=== PATIENT | male | born 1945 | race Caucasian/White ===

== ENCOUNTER → 2017-11-07 | Outpatient (CLI) | payer MEDICARE, OTHER ==
[~2017-11-07] VITALS: Ht 185.4 cm; Wt 108.9 kg
[~2017-11-07] MED LIST: ADENOSINE 90 MG/30 ML INJ IV ONE; ADENOSINE 91 MG in GIVE UN-DILUTED 0 ML IV ONE; ASPI81CH43; CITA-30; FURO40TA; INSLANTI; INSLISPI; LISI-711; MET25T; METF-370; SPIR25TA88; [UNRECOGNIZED DRUG - OTHER]
== END | disposition home or self-care (01) ==
LOC: Rad HDHVI 08:58
PROVIDERS: ATTEND Internal Medicine Cardiovascular Disease
DX: I34.0 Nonrheumatic mitral (valve) insufficiency (principal); E11.40 Type 2 diabetes mellitus with diabetic neuropathy, unspecified; E11.65 Type 2 diabetes mellitus with hyperglycemia; I95.9 Hypotension, unspecified; I11.0 Hypertensive heart disease with heart failure; I50.9 Heart failure, unspecified; Z79.4 Long term (current) use of insulin
CPT/HCPCS: 78452; 93005; 93306; 96374; 96375; A9500; J0153

== ENCOUNTER → 2017-12-04 | Outpatient (CLI) | payer MEDICARE ==
[~2017-12-04] MED LIST changes: -ADENOSINE 90 MG/30 ML INJ IV ONE; -ADENOSINE 91 MG in GIVE UN-DILUTED 0 ML IV ONE; +CITA-77 PO; +GLIP-116 PO; +INSLANTI SC; +INSLISPI SC; +LIRA18IN2 SUBCUT; +METF-370 PO; +METO25TA62 PO; +SPIR25TA89 PO; +TRAZ150T79 PO; +VALS80TA OR
[2017-12-04 10:15] VITALS: BP 150/94
[2017-12-04 11:24] VITALS: BP 140/87
[2017-12-04 12:21] LABS: INR 1.02 (0.9-1.15); Partial Thromboplastin Time 26.2 sec (22.64-33.71); Prothrombin Time 11.1 sec (9.37-12.3)
[2017-12-04 12:23] LABS: Basophils # (auto) 0 uL; Basophils % (auto) 0.1 % (0.0-2.0); Eosinophils # (auto) 0.1 uL; Eosinophils % (auto) 1.9 % (0.0-7.0); Hematocrit 37.1 % (41.0-53.0); Hemoglobin 12.5 g/dL (13.5-17.5); Lymphocytes # (auto) 0.8 uL; Lymphocytes % (auto) 17.9 % (10.0-50.0); Mean Corpuscular Hemoglobin 32.5 pg (28.0-32.0); Mean Corpuscular Hgb Conc. 33.8 g/dL (32.0-36.0); Mean Corpuscular Volume 96.2 fL (80.0-100.0); Monocytes # (auto) 0.5 uL; Monocytes % (auto) 10.9 % (0.0-12.0); Neutrophils # (auto) 3.1 uL; Neutrophils % (auto) 69.2 % (37.0-80.0); Platelet Count (auto) 185 10^3/uL (140-450); Red Blood Cells 3.86 10^6/uL (4.5-5.90); Red Cell Distribution Width 13.5 % (11.8-14.3); White Blood Cell 4.5 10^3/uL (4.4-10.8)
[2017-12-04 12:44] LABS: Albumin 3.2 g/dL (3.4-5.0); BUN/Creatinine Ratio 14.2; Bilirubin, Total 0.4 mg/dL (0.2-1.0); Calcium 9.7 mg/dL (8.5-10.1); Potassium 3.7 mmol/L (3.5-5.1); Total Protein 7.1 g/dL (6.4-8.2)
== END | disposition home or self-care (01) ==
LOC: Rad HDHVI 09:49
PROVIDERS: ATTEND Internal Medicine Cardiovascular Disease
DX: Z01.818 Encounter for other preprocedural examination (principal); I51.7 Cardiomegaly; I70.0 Atherosclerosis of aorta; E03.9 Hypothyroidism, unspecified; I10 Essential (primary) hypertension; E11.9 Type 2 diabetes mellitus without complications; Z79.4 Long term (current) use of insulin; Z95.810 Presence of automatic (implantable) cardiac defibrillator
CPT/HCPCS: 36415; 71046; 80053; 85025; 85610; 85730; 93005; G0463

== ENCOUNTER 2017-12-06 09:32 | Inpatient (IN) | payer MEDICARE ==
[~2017-12-06] VITALS: Ht 185.4 cm; Wt 113.2 kg
[~2017-12-06 09:32] MED LIST changes: -ASPI81CH43; -CITA-30; -FURO40TA; -INSLANTI; -INSLISPI; -LISI-711; -MET25T; -METF-370; -SPIR25TA88; -[UNRECOGNIZED DRUG - OTHER]
[2017-12-06] MEDS ORDERED: LIDOCAINE 2%HCL (LOCAL ANESTH.) INJ 20ML MDV ONE (10:28)
[2017-12-06] MEDS ORDERED: ceFAZolin 1GM/100ML 50 ML IV ONE (11:27)
[2017-12-06] MEDS ORDERED: VANCOMYCIN 1GM/250ML 250 ML IV ONE (12:18)
[2017-12-06] MEDS ORDERED: MIDAZOLAM HCL 1MG/1ML-2 ML VIAL ONE (12:18)
[2017-12-06] MEDS ORDERED: fentaNYL CITRATE 100 MCG/2 ML VL ONE (12:18)
[2017-12-06] MEDS ORDERED: VANCOMYCIN HCL 1000 MG VL ONE (12:18)
[2017-12-06] MEDS ORDERED: HYDROcodone-ACET 5/325MG TAB PO PRN (13:45)
[2017-12-06] MEDS ORDERED: ACETAMINOPHEN 325 MG TAB PO PRN (13:45)
[2017-12-06] MEDS ORDERED: MORPHINE SULFATE 4 MG/ML SYR/VIAL IV PRN (13:45)
[2017-12-06] MEDS ORDERED: NITROGLYCERIN 0.4 MG SL TAB SL PRN (13:45)
[2017-12-06] MEDS ORDERED: DEXTROSE (50%) 50ML SYRG IV PRN (13:45)
[2017-12-06 15:00] VITALS: BP 137/88
[2017-12-06 17:00] VITALS: BP 120/75
[2017-12-06] MEDS: InsuLIN REG 1unit/0.01ml Soln (100units/ml) SC SCH (19:00)
[2017-12-06] MEDS: ACCU-CHEK COMFORT CURVE STRIP VI SCH ×2 (19:00→21:31)
[2017-12-06] MEDS: INSULIN LANTUS (GLARGINE) 1 /0.01ml (100units/ml) SC SCH (19:00)
[2017-12-06] MEDS ORDERED: InsuLIN REG 1unit/0.01ml Soln (100units/ml) SC SCH (22:00)
[2017-12-06] MEDS ORDERED: traZODone HCL 50 MG TAB PO SCH (22:00)
[2017-12-06 22:30] VITALS: BP 146/90
[2017-12-06] MEDS ORDERED: TEMAZEPAM 15 MG CAP PO PRN (23:30)
[2017-12-07] MEDS: VANCOMYCIN 1GM/250ML 250 ML IV SCH ×2 (03:18→14:39)
[2017-12-07 04:37] VITALS: BP 133/85
[2017-12-07] MEDS: InsuLIN REG 1unit/0.01ml Soln (100units/ml) SC SCH ×3 (06:45→17:00)
[2017-12-07] MEDS: ACCU-CHEK COMFORT CURVE STRIP VI SCH ×3 (06:46→18:25)
[2017-12-07 07:39] VITALS: BP 134/95
[2017-12-07] MEDS ORDERED: glipiZIDE 5 MG TAB PO SCH (08:00)
[2017-12-07] MEDS ORDERED: VALSARTAN HYDROCHLOROTHIAZIDE PO SCH (10:00)
[2017-12-07] MEDS ORDERED: METOPROLOL SUCCINATE XL 50 MG TAB PO SCH (10:00)
[2017-12-07] MEDS ORDERED: metFORMIN HYDROCHLORIDE 500 MG TAB PO SCH (10:00)
[2017-12-07] MEDS ORDERED: SPIRONOLACTONE 25 MG TAB PO SCH (10:00)
[2017-12-07] MEDS ORDERED: CITALOPRAM HYDROBR 20 MG TAB PO SCH (10:00)
[2017-12-07 12:38] VITALS: BP 123/95
[2017-12-07 15:15] VITALS: BP 134/95
[2017-12-07 16:34] VITALS: BP 116/73
[2017-12-07] MEDS: INSULIN LANTUS (GLARGINE) 1 /0.01ml (100units/ml) SC SCH (18:00)
== END 2017-12-07 19:21 | disposition home or self-care (01) | DRG 245 ==
LOC: CATH 09:32 → TELE-EAST 09:33
PROVIDERS: ADMIT Internal Medicine Cardiovascular Disease; ATTEND Internal Medicine Cardiovascular Disease
PROC: 0JPT0PZ Removal of Cardiac Rhythm Related Device from Trunk Subcutaneous Tissue and Fascia, Open Approach (ICD-10-PCS; principal; 2017-12-06)
PROC: 0JH609Z Insertion of Cardiac Resynchronization Defibrillator Pulse Generator into Chest Subcutaneous Tissue and Fascia, Open Approach (ICD-10-PCS; 2017-12-06)
DX: Z45.02 Encounter for adjustment and management of automatic implantable cardiac defibrillator (principal); I50.22 Chronic systolic (congestive) heart failure; I25.5 Ischemic cardiomyopathy; I25.10 Atherosclerotic heart disease of native coronary artery without angina pectoris
CPT/HCPCS: 33264; 36415; 71046; 80053; 82962; 85025; 85610; 85730; 93005; 99152; G0463; J0690; J1815; J2250

== ENCOUNTER 2018-02-21 09:12 | Inpatient (IN) | payer MEDICARE ==
[~2018-02-21] VITALS: Ht 185.4 cm; Wt 110.0 kg
[~2018-02-21 09:12] MED LIST changes: +CARB25TA22 PO; +DOXA4TAB40 PO; +IODIXANOL 320MG/ML 100ML BTL IV ONE; +IVAB1.7T PO; +LIDOCAINE 2%HCL (LOCAL ANESTH.) INJ 10ml MDV ONE; -LIRA18IN2 SUBCUT; -METF-370 PO; +VALS160T53 PO; -VALS80TA OR
[2018-02-21] MEDS ORDERED: ANGIOMAX 250 MG VIAL IV ONE (09:50)
[2018-02-21] MEDS ORDERED: MIDAZOLAM HCL 1MG/1ML-2 ML VIAL ONE (09:51)
[2018-02-21] MEDS ORDERED: SODIUM CHL 0.9% 0 ML ONE (09:51)
[2018-02-21] MEDS ORDERED: fentaNYL CITRATE 100 MCG/2 ML VL ONE (09:51)
[2018-02-21] MEDS ORDERED: IODIXANOL 320MG/ML 100ML BTL IV ONE (10:20)
[2018-02-21] MEDS ORDERED: diphenhdrAMINE HCL 50 MG/1 ML VL ONE (10:24)
[2018-02-21] MEDS: ACCU-CHEK COMFORT CURVE STRIP VI SCH ×3 (11:30→22:11)
[2018-02-21] MEDS ORDERED: MORPHINE SULF INJ 2 MG/ML SYRINGE 1ML IV PRN ×2 (11:30→12:15)
[2018-02-21] MEDS ORDERED: NITROGLYCERIN 0.4 MG SL TAB SL PRN ×2 (11:30→12:15)
[2018-02-21] MEDS: InsuLIN REG 1unit/0.01ml Soln (100units/ml) SC SCH ×3 (11:30→22:09)
[2018-02-21] MEDS ORDERED: DEXTROSE (50%) 50ML SYRG IV PRN (11:30)
[2018-02-21] MEDS ORDERED: ONDANSETRON HCL 4 MG/2 ML VIAL IV PRN (12:15)
[2018-02-21] MEDS ORDERED: ACETAMINOPHEN 500 MG TAB PO PRN (12:15)
[2018-02-21] MEDS ORDERED: HYDROcodone-ACET 5/325MG TAB PO PRN (12:15)
[2018-02-21] MEDS: FUROSEMIDE INJECTION 250 MG in SODIUM CHL 0.9% 225 ML IV SCH (12:41)
[2018-02-21] MEDS ORDERED: METOPROLOL SUCCINATE XL 50 MG TAB PO ONE (15:15)
[2018-02-21] MEDS: SODIUM CHLOR 0.9% PF (SALINE LOCK) 10ML VIAL/SYR IV SCH ×2 (15:56→22:09)
[2018-02-21 16:00] VITALS: BP 126/95
[2018-02-21] MEDS: MILRINONE 20MG/100ML 100 ML IV SCH ×4 (16:20→23:19)
[2018-02-21 17:00] VITALS: BP 119/98
[2018-02-21] MEDS: METOPROLOL SUCCINATE XL 50 MG TAB PO SCH (17:50)
[2018-02-21] MEDS: CARBIDOPA W LEVODOPA 25/100mg TABLET PO SCH (17:50)
[2018-02-21 20:00] VITALS: BP 124/74
[2018-02-21 20:11] LABS: BUN/Creatinine Ratio 23.5; Calcium 8.8 mg/dL (8.5-10.1); Potassium 4.8 mmol/L (3.5-5.1)
[2018-02-21 22:00] VITALS: BP 124/74
[2018-02-21] MEDS ORDERED: METOPROLOL TARTRATE 50 MG TAB PO SCH (22:00)
[2018-02-21] MEDS: traZODone HCL 50 MG TAB PO SCH (22:09)
[2018-02-21] MEDS: INSULIN LANTUS (GLARGINE) 1 /0.01ml (100units/ml) SC SCH (22:10)
[2018-02-22 05:00] VITALS: BP_SYST 129; BP_SYST 135; BP_DIAS 68; BP_DIAS 81
[2018-02-22] MEDS: MILRINONE 20MG/100ML 100 ML IV SCH ×3 (05:06→22:06)
[2018-02-22] MEDS: SODIUM CHLOR 0.9% PF (SALINE LOCK) 10ML VIAL/SYR IV SCH ×3 (06:21→22:06)
[2018-02-22] MEDS: INSULIN LANTUS (GLARGINE) 1 /0.01ml (100units/ml) SC SCH ×2 (06:47→22:20)
[2018-02-22] MEDS: ACCU-CHEK COMFORT CURVE STRIP VI SCH ×4 (06:47→22:21)
[2018-02-22] MEDS: InsuLIN REG 1unit/0.01ml Soln (100units/ml) SC SCH ×4 (06:47→22:20)
[2018-02-22 07:15] LABS: Basophils # (auto) 0 uL; Basophils % (auto) 0.1 % (0.0-2.0); Eosinophils # (auto) 0.1 uL; Eosinophils % (auto) 1.9 % (0.0-7.0); Hematocrit 36.4 % (41.0-53.0); Lymphocytes # (auto) 0.7 uL; Lymphocytes % (auto) 12.1 % (10.0-50.0); Mean Corpuscular Hemoglobin 33.1 pg (28.0-32.0); Mean Corpuscular Hgb Conc. 32.8 g/dL (32.0-36.0); Mean Corpuscular Volume 100.9 fL (80.0-100.0); Monocytes # (auto) 0.6 uL; Neutrophils # (auto) 4.3 uL; Neutrophils % (auto) 74.9 % (37.0-80.0); Nucleated Red Blood Cells % 0.2 %; Platelet Count (auto) 172 10^3/uL (140-450); Red Blood Cells 3.61 10^6/uL (4.5-5.90); Red Cell Distribution Width 17.6 % (11.8-14.3); White Blood Cell 5.7 10^3/uL (4.4-10.8)
[2018-02-22 07:32] LABS: Potassium 3.8 mmol/L (3.5-5.1)
[2018-02-22 07:41] LABS: BUN/Creatinine Ratio 24.7; Calcium 8.9 mg/dL (8.5-10.1)
[2018-02-22 09:00] VITALS: BP 118/93
[2018-02-22] MEDS: CITALOPRAM HYDROBR 20 MG TAB PO SCH (09:37)
[2018-02-22] MEDS: CARBIDOPA W LEVODOPA 25/100mg TABLET PO SCH (09:37)
[2018-02-22] MEDS: DOXAZOSIN MESYL 2 MG TAB PO SCH (09:37)
[2018-02-22] MEDS: DIGOXIN 0.125 MG TAB PO SCH (09:39)
[2018-02-22] MEDS: METOPROLOL SUCCINATE XL 50 MG TAB PO SCH (09:39)
[2018-02-22] MEDS: glipiZIDE 5 MG TAB PO SCH (09:40)
[2018-02-22] MEDS: [UNRECOGNIZED DRUG - OTHER] PO SCH (10:00)
[2018-02-22] MEDS: VALSARTAN HYDROCHLOROTHIAZIDE PO SCH (11:34)
[2018-02-22 13:00] VITALS: BP 115/73
[2018-02-22] MEDS: FUROSEMIDE INJECTION 250 MG in SODIUM CHL 0.9% 225 ML IV SCH (13:21)
[2018-02-22 17:00] VITALS: BP 106/67
[2018-02-22 20:00] VITALS: BP 109/65
[2018-02-22 22:00] VITALS: BP 109/65
[2018-02-22] MEDS: traZODone HCL 50 MG TAB PO SCH (22:06)
[2018-02-22] MEDS: TEMAZEPAM 15 MG CAP PO PRN (22:07)
[2018-02-23 04:57] VITALS: BP 113/75
[2018-02-23] MEDS: MILRINONE 20MG/100ML 100 ML IV SCH ×3 (04:58→17:36)
[2018-02-23] MEDS: SODIUM CHLOR 0.9% PF (SALINE LOCK) 10ML VIAL/SYR IV SCH ×3 (06:16→21:50)
[2018-02-23] MEDS: INSULIN LANTUS (GLARGINE) 1 /0.01ml (100units/ml) SC SCH ×2 (06:32→21:50)
[2018-02-23] MEDS: InsuLIN REG 1unit/0.01ml Soln (100units/ml) SC SCH ×4 (06:32→21:50)
[2018-02-23] MEDS: ACCU-CHEK COMFORT CURVE STRIP VI SCH ×4 (06:36→21:52)
[2018-02-23 08:00] VITALS: BP 136/71
[2018-02-23 09:48] VITALS: BP 136/71
[2018-02-23] MEDS: CITALOPRAM HYDROBR 20 MG TAB PO SCH (09:51)
[2018-02-23] MEDS: VALSARTAN HYDROCHLOROTHIAZIDE PO SCH (09:51)
[2018-02-23] MEDS: METOPROLOL SUCCINATE XL 50 MG TAB PO SCH (09:52)
[2018-02-23] MEDS: DIGOXIN 0.125 MG TAB PO SCH (09:52)
[2018-02-23] MEDS: DOXAZOSIN MESYL 2 MG TAB PO SCH (09:52)
[2018-02-23] MEDS: CARBIDOPA W LEVODOPA 25/100mg TABLET PO SCH (09:54)
[2018-02-23] MEDS: [UNRECOGNIZED DRUG - OTHER] PO SCH (10:00)
[2018-02-23] MEDS: glipiZIDE 5 MG TAB PO SCH (10:38)
[2018-02-23 13:00] VITALS: BP 110/83
[2018-02-23] MEDS: FUROSEMIDE INJECTION 250 MG in SODIUM CHL 0.9% 225 ML IV SCH (13:15)
[2018-02-23 16:44] VITALS: BP 88/56
[2018-02-23] MEDS: TEMAZEPAM 15 MG CAP PO PRN (21:42)
[2018-02-23] MEDS: traZODone HCL 50 MG TAB PO SCH (21:42)
[2018-02-23 21:49] VITALS: BP 101/57
[2018-02-24 04:44] VITALS: BP 98/63
[2018-02-24] MEDS: ACCU-CHEK COMFORT CURVE STRIP VI SCH ×4 (06:34→23:03)
[2018-02-24] MEDS: InsuLIN REG 1unit/0.01ml Soln (100units/ml) SC SCH ×4 (06:34→23:02)
[2018-02-24] MEDS: SODIUM CHLOR 0.9% PF (SALINE LOCK) 10ML VIAL/SYR IV SCH ×3 (06:35→22:00)
[2018-02-24] MEDS: INSULIN LANTUS (GLARGINE) 1 /0.01ml (100units/ml) SC SCH ×2 (06:35→23:03)
[2018-02-24 08:00] VITALS: BP 97/64
[2018-02-24] MEDS: METOPROLOL SUCCINATE XL 50 MG TAB PO SCH (10:00)
[2018-02-24] MEDS: [UNRECOGNIZED DRUG - OTHER] PO SCH (10:00)
[2018-02-24] MEDS: VALSARTAN HYDROCHLOROTHIAZIDE PO SCH (10:00)
[2018-02-24] MEDS: DOXAZOSIN MESYL 2 MG TAB PO SCH (10:00)
[2018-02-24] MEDS: CITALOPRAM HYDROBR 20 MG TAB PO SCH (10:15)
[2018-02-24] MEDS: CARBIDOPA W LEVODOPA 25/100mg TABLET PO SCH (10:15)
[2018-02-24] MEDS: DIGOXIN 0.125 MG TAB PO SCH (10:15)
[2018-02-24] MEDS: glipiZIDE 5 MG TAB PO SCH (10:16)
[2018-02-24] MEDS: MILRINONE 20MG/100ML 100 ML IV SCH (10:17)
[2018-02-24 10:26] LABS: Albumin 2.8 g/dL (3.4-5.0); BUN/Creatinine Ratio 21.8; Bilirubin, Total 0.9 mg/dL (0.2-1.0); Calcium 8.7 mg/dL (8.5-10.1); Potassium 3.6 mmol/L (3.5-5.1); Total Protein 5.9 g/dL (6.4-8.2)
[2018-02-24 12:25] VITALS: BP 93/55
[2018-02-24 12:28] VITALS: BP 93/55
[2018-02-24] MEDS: FUROSEMIDE INJECTION 250 MG in SODIUM CHL 0.9% 225 ML IV SCH (13:32)
[2018-02-24 16:47] VITALS: BP 116/68
[2018-02-24 21:43] VITALS: BP 109/69
[2018-02-24] MEDS: traZODone HCL 50 MG TAB PO SCH (22:00)
[2018-02-24] MEDS: TEMAZEPAM 15 MG CAP PO PRN (23:11)
[2018-02-25] MEDS: MILRINONE 20MG/100ML 100 ML IV SCH ×2 (00:49→17:54)
[2018-02-25 04:44] VITALS: BP 93/72
[2018-02-25] MEDS: SODIUM CHLOR 0.9% PF (SALINE LOCK) 10ML VIAL/SYR IV SCH ×3 (06:00→22:51)
[2018-02-25] MEDS: InsuLIN REG 1unit/0.01ml Soln (100units/ml) SC SCH ×4 (06:45→23:32)
[2018-02-25] MEDS: ACCU-CHEK COMFORT CURVE STRIP VI SCH ×4 (06:45→23:33)
[2018-02-25] MEDS: INSULIN LANTUS (GLARGINE) 1 /0.01ml (100units/ml) SC SCH ×2 (06:53→23:33)
[2018-02-25 09:00] VITALS: BP 113/76
[2018-02-25] MEDS: glipiZIDE 5 MG TAB PO SCH (09:30)
[2018-02-25] MEDS: CITALOPRAM HYDROBR 20 MG TAB PO SCH (09:30)
[2018-02-25] MEDS: DIGOXIN 0.125 MG TAB PO SCH (09:30)
[2018-02-25] MEDS: VALSARTAN HYDROCHLOROTHIAZIDE PO SCH (10:00)
[2018-02-25] MEDS: DOXAZOSIN MESYL 2 MG TAB PO SCH (10:00)
[2018-02-25] MEDS: [UNRECOGNIZED DRUG - OTHER] PO SCH (10:00)
[2018-02-25] MEDS: METOPROLOL SUCCINATE XL 50 MG TAB PO SCH (10:00)
[2018-02-25] MEDS: CARBIDOPA W LEVODOPA 25/100mg TABLET PO SCH (10:07)
[2018-02-25 13:00] VITALS: BP 109/67
[2018-02-25 13:20] LABS: BUN/Creatinine Ratio 20.4; Calcium 8.5 mg/dL (8.5-10.1); Potassium 3.7 mmol/L (3.5-5.1)
[2018-02-25] MEDS ORDERED: acetaZOLAMIDE 250 MG TAB PO SCH (17:45)
[2018-02-25 17:53] VITALS: BP 120/73
[2018-02-25] MEDS: FUROSEMIDE INJECTION 250 MG in SODIUM CHL 0.9% 225 ML IV SCH (17:54)
[2018-02-25 21:30] VITALS: BP 96/55
[2018-02-25] MEDS: traZODone HCL 50 MG TAB PO SCH (22:51)
[2018-02-26] MEDS: TEMAZEPAM 15 MG CAP PO PRN (00:28)
[2018-02-26] MEDS: MILRINONE 20MG/100ML 100 ML IV SCH (01:26)
[2018-02-26 05:00] VITALS: BP 100/70
[2018-02-26] MEDS: InsuLIN REG 1unit/0.01ml Soln (100units/ml) SC SCH ×4 (06:47→22:47)
[2018-02-26] MEDS: INSULIN LANTUS (GLARGINE) 1 /0.01ml (100units/ml) SC SCH ×2 (06:48→22:47)
[2018-02-26] MEDS: SODIUM CHLOR 0.9% PF (SALINE LOCK) 10ML VIAL/SYR IV SCH ×3 (06:48→22:00)
[2018-02-26] MEDS: ACCU-CHEK COMFORT CURVE STRIP VI SCH ×4 (06:48→22:00)
[2018-02-26 07:42] VITALS: BP 107/70
[2018-02-26] MEDS: VALSARTAN HYDROCHLOROTHIAZIDE PO SCH (10:00)
[2018-02-26] MEDS: CITALOPRAM HYDROBR 20 MG TAB PO SCH (10:00)
[2018-02-26] MEDS: [UNRECOGNIZED DRUG - OTHER] PO SCH (10:00)
[2018-02-26] MEDS: DOXAZOSIN MESYL 2 MG TAB PO SCH (10:00)
[2018-02-26] MEDS: CARBIDOPA W LEVODOPA 25/100mg TABLET PO SCH (10:10)
[2018-02-26] MEDS: DIGOXIN 0.125 MG TAB PO SCH (10:10)
[2018-02-26] MEDS: glipiZIDE 5 MG TAB PO SCH (10:38)
[2018-02-26] MEDS ORDERED: DIGOXIN 0.125 MG TAB PO ONE (11:30)
[2018-02-26] MEDS: METOPROLOL SUCCINATE XL 50 MG TAB PO SCH (11:53)
[2018-02-26 12:14] VITALS: BP 114/54
[2018-02-26 16:39] VITALS: BP 95/65
[2018-02-26 22:00] VITALS: BP 110/75
[2018-02-26] MEDS: traZODone HCL 50 MG TAB PO SCH (22:46)
[2018-02-27 05:00] VITALS: BP 120/68
[2018-02-27] MEDS: SODIUM CHLOR 0.9% PF (SALINE LOCK) 10ML VIAL/SYR IV SCH ×3 (06:50→22:08)
[2018-02-27] MEDS: INSULIN LANTUS (GLARGINE) 1 /0.01ml (100units/ml) SC SCH ×2 (06:50→22:09)
[2018-02-27] MEDS: ACCU-CHEK COMFORT CURVE STRIP VI SCH ×4 (06:50→22:09)
[2018-02-27] MEDS: InsuLIN REG 1unit/0.01ml Soln (100units/ml) SC SCH ×4 (06:50→22:09)
[2018-02-27 07:32] VITALS: BP 120/74
[2018-02-27] MEDS: METOPROLOL SUCCINATE XL 50 MG TAB PO SCH (09:36)
[2018-02-27] MEDS: CITALOPRAM HYDROBR 20 MG TAB PO SCH (09:37)
[2018-02-27] MEDS: DIGOXIN 0.125 MG TAB PO SCH (09:37)
[2018-02-27] MEDS: DOXAZOSIN MESYL 2 MG TAB PO SCH (09:38)
[2018-02-27] MEDS: glipiZIDE 5 MG TAB PO SCH (09:38)
[2018-02-27] MEDS: [UNRECOGNIZED DRUG - OTHER] PO SCH (10:00)
[2018-02-27] MEDS: VALSARTAN HYDROCHLOROTHIAZIDE PO SCH (10:00)
[2018-02-27] MEDS: CARBIDOPA W LEVODOPA 25/100mg TABLET PO SCH (10:00)
[2018-02-27 10:45] LABS: Basophils # (auto) 0 uL; Basophils % (auto) 0.1 % (0.0-2.0); Eosinophils # (auto) 0.1 uL; Eosinophils % (auto) 2.4 % (0.0-7.0); Hematocrit 38.6 % (41.0-53.0); Hemoglobin 12.6 g/dL (13.5-17.5); Lymphocytes # (auto) 0.7 uL; Mean Corpuscular Hemoglobin 32.4 pg (28.0-32.0); Mean Corpuscular Hgb Conc. 32.5 g/dL (32.0-36.0); Mean Corpuscular Volume 99.5 fL (80.0-100.0); Monocytes # (auto) 0.8 uL; Monocytes % (auto) 12.6 % (0.0-12.0); Neutrophils # (auto) 4.4 uL; Neutrophils % (auto) 73.9 % (37.0-80.0); Nucleated Red Blood Cells % 0.1 %; Platelet Count (auto) 169 10^3/uL (140-450); Red Blood Cells 3.88 10^6/uL (4.5-5.90); Red Cell Distribution Width 17.3 % (11.8-14.3)
[2018-02-27 11:07] LABS: Albumin 2.8 g/dL (3.4-5.0); BUN/Creatinine Ratio 21.9; Bilirubin, Total 0.8 mg/dL (0.2-1.0); Calcium 8.9 mg/dL (8.5-10.1); Potassium 3.9 mmol/L (3.5-5.1); Total Protein 6.8 g/dL (6.4-8.2)
[2018-02-27 11:57] VITALS: BP 117/99
[2018-02-27 16:20] VITALS: BP 118/75
[2018-02-27 21:56] VITALS: BP 103/62
[2018-02-27] MEDS: TEMAZEPAM 15 MG CAP PO PRN (22:09)
[2018-02-27] MEDS: traZODone HCL 50 MG TAB PO SCH (22:09)
[2018-02-28 05:52] VITALS: BP 103/76
[2018-02-28] MEDS: SODIUM CHLOR 0.9% PF (SALINE LOCK) 10ML VIAL/SYR IV SCH ×3 (06:13→22:57)
[2018-02-28] MEDS: ACCU-CHEK COMFORT CURVE STRIP VI SCH ×4 (06:14→23:04)
[2018-02-28] MEDS: InsuLIN REG 1unit/0.01ml Soln (100units/ml) SC SCH ×4 (06:14→23:03)
[2018-02-28] MEDS: INSULIN LANTUS (GLARGINE) 1 /0.01ml (100units/ml) SC SCH ×2 (06:14→23:03)
[2018-02-28 08:13] VITALS: BP 98/67
[2018-02-28] MEDS: DOXAZOSIN MESYL 2 MG TAB PO SCH (10:00)
[2018-02-28] MEDS: METOPROLOL SUCCINATE XL 50 MG TAB PO SCH (10:00)
[2018-02-28] MEDS: VALSARTAN HYDROCHLOROTHIAZIDE PO SCH (10:00)
[2018-02-28] MEDS: [UNRECOGNIZED DRUG - OTHER] PO SCH (10:00)
[2018-02-28] MEDS: CARBIDOPA W LEVODOPA 25/100mg TABLET PO SCH (11:32)
[2018-02-28] MEDS: DIGOXIN 0.125 MG TAB PO SCH (11:32)
[2018-02-28] MEDS: CITALOPRAM HYDROBR 20 MG TAB PO SCH (11:33)
[2018-02-28 13:28] VITALS: BP 98/72
[2018-02-28 17:01] VITALS: BP 93/67
[2018-02-28 22:00] VITALS: BP 100/66
[2018-02-28] MEDS: traZODone HCL 50 MG TAB PO SCH (23:02)
[2018-03-01 05:15] VITALS: BP 100/68
[2018-03-01] MEDS: SODIUM CHLOR 0.9% PF (SALINE LOCK) 10ML VIAL/SYR IV SCH (06:00)
[2018-03-01] MEDS: InsuLIN REG 1unit/0.01ml Soln (100units/ml) SC SCH ×2 (07:11→11:58)
[2018-03-01] MEDS: ACCU-CHEK COMFORT CURVE STRIP VI SCH ×2 (07:12→11:58)
[2018-03-01] MEDS: INSULIN LANTUS (GLARGINE) 1 /0.01ml (100units/ml) SC SCH (07:12)
[2018-03-01 08:27] VITALS: BP 102/67
[2018-03-01 09:42] VITALS: BP 102/67
[2018-03-01] MEDS: [UNRECOGNIZED DRUG - OTHER] PO SCH (10:00)
[2018-03-01] MEDS: VALSARTAN HYDROCHLOROTHIAZIDE PO SCH (10:00)
[2018-03-01] MEDS: DOXAZOSIN MESYL 2 MG TAB PO SCH (10:00)
[2018-03-01] MEDS: CITALOPRAM HYDROBR 20 MG TAB PO SCH (10:00)
[2018-03-01] MEDS: METOPROLOL SUCCINATE XL 50 MG TAB PO SCH (10:00)
[2018-03-01] MEDS: CARBIDOPA W LEVODOPA 25/100mg TABLET PO SCH (11:36)
[2018-03-01] MEDS: DIGOXIN 0.125 MG TAB PO SCH (11:36)
[2018-03-01 12:00] VITALS: BP 100/64
== END 2018-03-01 12:54 | disposition home health service (06) | DRG 286 ==
LOC: CATH 09:12 → TELE-EAST 09:13
PROVIDERS: ADMIT Internal Medicine Cardiovascular Disease; ATTEND Internal Medicine Cardiovascular Disease
PROC: 4A023N8 Measurement of Cardiac Sampling and Pressure, Bilateral, Percutaneous Approach (ICD-10-PCS; principal; 2018-02-21)
PROC: B2111ZZ Fluoroscopy of Multiple Coronary Arteries using Low Osmolar Contrast (ICD-10-PCS; 2018-02-21)
PROC: B2151ZZ Fluoroscopy of Left Heart using Low Osmolar Contrast (ICD-10-PCS; 2018-02-21)
DX: I11.0 Hypertensive heart disease with heart failure (principal); J96.90 Respiratory failure, unspecified, unspecified whether with hypoxia or hypercapnia; D68.59 Other primary thrombophilia; E44.0 Moderate protein-calorie malnutrition; I42.0 Dilated cardiomyopathy; E11.40 Type 2 diabetes mellitus with diabetic neuropathy, unspecified; E11.21 Type 2 diabetes mellitus with diabetic nephropathy; I25.5 Ischemic cardiomyopathy; E11.649 Type 2 diabetes mellitus with hypoglycemia without coma; I07.1 Rheumatic tricuspid insufficiency; I50.21 Acute systolic (congestive) heart failure; I27.20 Pulmonary hypertension, unspecified; I45.9 Conduction disorder, unspecified; I48.2 Chronic atrial fibrillation; Z95.810 Presence of automatic (implantable) cardiac defibrillator; Z79.4 Long term (current) use of insulin; Z82.49 Family history of ischemic heart disease and other diseases of the circulatory system
CPT/HCPCS: 36415; 36600; 80048; 80053; 82805; 82962; 83880; 85025; 87081; 93005; 93460; 99152; A6257; J1815; J2001; J2250; Q9967

== ENCOUNTER → 2018-04-08 | Outpatient (CLI) | payer MEDICARE ==
[~2018-04-08] MED LIST changes: -IODIXANOL 320MG/ML 100ML BTL IV ONE; -LIDOCAINE 2%HCL (LOCAL ANESTH.) INJ 10ml MDV ONE; +SPIR25TA8 PO; -SPIR25TA89 PO
== END | disposition home or self-care (01) ==
LOC: Rad HDHVI 09:45
PROVIDERS: ATTEND Internal Medicine Cardiovascular Disease
DX: I08.1 Rheumatic disorders of both mitral and tricuspid valves (principal); I10 Essential (primary) hypertension; E78.00 Pure hypercholesterolemia, unspecified
CPT/HCPCS: 93306

== ENCOUNTER → 2018-10-22 | Outpatient (CLI) | payer MEDICARE | END | disposition home or self-care (01) | LOC: Rad HDHVI 10:43 | PROVIDERS: ATTEND Internal Medicine Cardiovascular Disease | DX: I08.1 Rheumatic disorders of both mitral and tricuspid valves (principal); I25.5 Ischemic cardiomyopathy; I50.23 Acute on chronic systolic (congestive) heart failure | CPT/HCPCS: 93306 ==

== ENCOUNTER → 2018-11-22 | Outpatient (CLI) | payer MEDICARE ==
--- NOTE | 2008-11-22 16:30 | NUR ---
EXISTING HL LFT AC FROM NUC. MED FLUSHED. SITE BENIGN. MVI .9NS STARTED PER MD ORDER AT 200CC/HR. HX: CHF, HTN, DM. PT IS PACED RYTHM AT 60. 102/58.
[~2018-11-22] VITALS: Ht 185.4 cm; Wt 100.2 kg
[~2018-11-22] MED LIST changes: +ADENOSINE 84 MG in GIVE UN-DILUTED 0 ML IV ONE; +ADENOSINE 90 MG/30 ML INJ IV ONE; +MVI in SODIUM CHLORIDE 0.9% 1,010 ML ONE; +MVI in SODIUM CHLORIDE 0.9% 500 ML IVB ONE
[2018-11-22 15:49] LABS: Urine Blood Negative /uL (Negative); Urine Specific Gravity 1.011 (1.001-1.035)
[2018-11-22 15:51] LABS: Basophils # (auto) 0 uL; Basophils % (auto) 0.2 % (0.0-2.0); Eosinophils # (auto) 0.1 uL; Lymphocytes # (auto) 0.7 uL; Monocytes # (auto) 0.5 uL; Neutrophils # (auto) 4.3 uL; White Blood Cell 5.6 10^3/uL (4.4-10.8)
[2018-11-22 15:54] LABS: Eosinophils % (auto) 2.1 % (0.0-7.0); Hematocrit 32.8 % (41.0-53.0); Hemoglobin 11.1 g/dL (13.5-17.5); Lymphocytes % (auto) 12.6 % (10.0-50.0); Mean Corpuscular Hemoglobin 34.8 pg (28.0-32.0); Mean Corpuscular Hgb Conc. 33.9 g/dL (32.0-36.0); Mean Corpuscular Volume 102.5 fL (80.0-100.0); Monocytes % (auto) 8.6 % (0.0-12.0); Neutrophils % (auto) 76.5 % (37.0-80.0); Platelet Count (auto) 171 10^3/uL (140-450); Red Cell Distribution Width 13.5 % (11.8-14.3)
[2018-11-22 15:58] LABS: Magnesium 2.9 mg/dL (1.6-2.6); Potassium 4.3 mmol/L (3.5-5.1)
[2018-11-22 16:06] LABS: Albumin 3.7 g/dL (3.4-5.0); BUN/Creatinine Ratio 21.3; Bilirubin, Total 0.6 mg/dL (0.2-1.0); Free T4 (Free Thyroxine) 1.03 ng/dL (0.89-1.76); Prostate Specific Antigen 0.52 ng/mL (0.0-4.0)
[2018-11-22 16:20] VITALS: BP 102/56
--- NOTE | 2018-11-22 16:20 | NUR ---
RECEIVED PT. AFTER NUC MED. FOR IV HYDRATION WITH MVI PER MD ORDER. ORDERS RECEIVED AND CARRIED OUT
[2018-11-22 17:55] VITALS: BP 122/72
--- NOTE | 2018-11-22 18:15 | NUR ---
IV removal IV DC'd with sterile technique, catheter fully intact. Pressure dressing applied to site. Patient tolerated procedure well. Discharged with aftercare instructions per MD. NOTE: PT. TO FOLLOW UP PER MD APPT.
--- NOTE | 2019-02-03 10:23 | NUR ---
LATE ENTRY FOR 11/22 MVI IN NS [id number] ADMIN BY BRANDON BACK
== END | disposition home or self-care (01) ==
LOC: Rad HDHVI 13:19
PROVIDERS: ATTEND Internal Medicine Cardiovascular Disease
DX: I11.0 Hypertensive heart disease with heart failure (principal); I50.23 Acute on chronic systolic (congestive) heart failure; I48.91 Unspecified atrial fibrillation; E11.21 Type 2 diabetes mellitus with diabetic nephropathy; E03.9 Hypothyroidism, unspecified; E55.9 Vitamin D deficiency, unspecified; C61 Malignant neoplasm of prostate; E29.1 Testicular hypofunction; D51.9 Vitamin B12 deficiency anemia, unspecified; N39.0 Urinary tract infection, site not specified; Z79.899 Other long term (current) drug therapy; Z95.0 Presence of cardiac pacemaker
CPT/HCPCS: 36415; 78452; 80053; 80061; 80162; 81003; 82306; 82607; 82962; 83036; 83735; 84153; 84403; 84439; 84443; 85025; 87086; 93005; 96365; 96375; A9500; G0463; J0153; J3411; J3475; 96374

== ENCOUNTER → 2019-04-29 | Outpatient (CLI) | payer MEDICARE ==
[~2019-04-29] MED LIST changes: -ADENOSINE 84 MG in GIVE UN-DILUTED 0 ML IV ONE; -ADENOSINE 90 MG/30 ML INJ IV ONE; -DOXA4TAB40 PO; +DOXA4TAB5 PO; -GLIP-116 PO; +GLIP10TA9 PO; -MVI in SODIUM CHLORIDE 0.9% 1,010 ML ONE; -MVI in SODIUM CHLORIDE 0.9% 500 ML IVB ONE
[2019-04-29 12:25] LABS: Basophils # (auto) 0 uL; Basophils % (auto) 0.5 % (0.0-2.0); Eosinophils # (auto) 0.1 uL; Hemoglobin 11.5 g/dL (13.5-17.5); Lymphocytes # (auto) 0.8 uL; Monocytes # (auto) 0.5 uL; Red Cell Distribution Width 13.9 % (11.8-14.3)
[2019-04-29 12:28] LABS: Eosinophils % (auto) 2.3 % (0.0-7.0); Hematocrit 33.2 % (41.0-53.0); Lymphocytes % (auto) 13.4 % (10.0-50.0); Mean Corpuscular Hemoglobin 34.5 pg (28.0-32.0); Mean Corpuscular Hgb Conc. 34.6 g/dL (32.0-36.0); Mean Corpuscular Volume 99.5 fL (80.0-100.0); Monocytes % (auto) 8.2 % (0.0-12.0); Neutrophils # (auto) 4.4 uL; Neutrophils % (auto) 75.6 % (37.0-80.0); Platelet Count (auto) 214 10^3/uL (140-450); Red Blood Cells 3.34 10^6/uL (4.5-5.90); White Blood Cell 5.8 10^3/uL (4.4-10.8)
[2019-04-29 12:34] LABS: Albumin 3.4 g/dL (3.4-5.0); Potassium 4.6 mmol/L (3.5-5.1)
[2019-04-29 12:44] LABS: BUN/Creatinine Ratio 20.2; Bilirubin, Total 0.4 mg/dL (0.2-1.0); Calcium 9.3 mg/dL (8.5-10.1); Total Protein 7.1 g/dL (6.4-8.2)
[2019-04-29 12:48] LABS: Urine Blood TRACE /uL (Negative); Urine Specific Gravity 1.016 (1.001-1.035)
[2019-04-29 13:11] LABS: Free T4 (Free Thyroxine) 1.11 ng/dL (0.89-1.76); Prostate Specific Antigen 0.7 ng/mL (0.0-4.0)
== END | disposition home or self-care (01) ==
LOC: Rad HDHVI 08:10
PROVIDERS: ATTEND Internal Medicine Cardiovascular Disease
DX: I08.1 Rheumatic disorders of both mitral and tricuspid valves (principal); E11.65 Type 2 diabetes mellitus with hyperglycemia; E03.9 Hypothyroidism, unspecified; K90.9 Intestinal malabsorption, unspecified; C61 Malignant neoplasm of prostate; E29.1 Testicular hypofunction; N39.0 Urinary tract infection, site not specified; D51.9 Vitamin B12 deficiency anemia, unspecified; Z79.899 Other long term (current) drug therapy
CPT/HCPCS: 36415; 80053; 80061; 81003; 82306; 82607; 83036; 84153; 84403; 84439; 84443; 85025; 87086; 93306

== ENCOUNTER 2019-08-25 11:15 | Emergency (ER) | payer MEDICARE ==
[~2019-08-25] VITALS: Ht 177.8 cm; Wt 90.7 kg
[~2019-08-25 11:15] MED LIST changes: -METO25TA62 PO; +METO25TA93 PO
[2019-08-25 11:50] LABS: Basophils # (auto) 0 uL; Basophils % (auto) 0.4 % (0.0-2.0); Eosinophils # (auto) 0 uL; Eosinophils % (auto) 0.3 % (0.0-7.0); Hematocrit 35.1 % (41.0-53.0); Hemoglobin 11.4 g/dL (13.5-17.5); Lymphocytes # (auto) 0.3 uL; Lymphocytes % (auto) 2.4 % (10.0-50.0); Mean Corpuscular Hemoglobin 31.6 pg (28.0-32.0); Mean Corpuscular Hgb Conc. 32.4 g/dL (32.0-36.0); Mean Corpuscular Volume 97.7 fL (80.0-100.0); Monocytes # (auto) 1.9 uL; Monocytes % (auto) 16.1 % (0.0-12.0); Neutrophils # (auto) 9.7 uL; Neutrophils % (auto) 80.8 % (37.0-80.0); Nucleated Red Blood Cells % 0.1 %; Platelet Count (auto) 135 10^3/uL (140-450); Red Blood Cells 3.59 10^6/uL (4.5-5.90)
[2019-08-25 12:01] LABS: Albumin 2.2 g/dL (3.4-5.0); Calcium 8.9 mg/dL (8.5-10.1); Potassium 4.1 mmol/L (3.5-5.1)
[2019-08-25 12:05] LABS: BUN/Creatinine Ratio 30.8; Bilirubin, Total 3.7 mg/dL (0.2-1.0); Total Protein 6.2 g/dL (6.4-8.2)
[2019-08-25 13:22] LABS: INR 2.83 (0.9-1.15); Partial Thromboplastin Time 67.3 sec (23.64-32.05)
[2019-08-25] MEDS ORDERED: ENOXAPARIN SOD 100 MG/1 ML SYRINGE SC ONE (16:15)
[2019-08-25] MEDS ORDERED: ONDANSETRON HCL 4 MG/2 ML VIAL IV ONE (18:30)
[2019-08-25] MEDS ORDERED: MORPHINE SULF INJ 2 MG/ML SYRINGE 1ML IV ONE (18:30)
[2019-08-25 18:33] VITALS: BP 91/65
== END 2019-08-25 18:43 | disposition short-term general hospital (02) ==
LOC: EDBD 11:15 → ER 11:24
DX: I70.90 Unspecified atherosclerosis (principal); I73.9 Peripheral vascular disease, unspecified; E11.65 Type 2 diabetes mellitus with hyperglycemia; I48.91 Unspecified atrial fibrillation; I42.9 Cardiomyopathy, unspecified; E87.1 Hypo-osmolality and hyponatremia; D72.829 Elevated white blood cell count, unspecified; E11.22 Type 2 diabetes mellitus with diabetic chronic kidney disease; I13.0 Hypertensive heart and chronic kidney disease with heart failure and stage 1 through stage 4 chronic kidney disease, or unspecified chronic kidney disease; N18.9 Chronic kidney disease, unspecified; N17.9 Acute kidney failure, unspecified; I50.9 Heart failure, unspecified; E78.5 Hyperlipidemia, unspecified; I25.2 Old myocardial infarction; Z79.4 Long term (current) use of insulin; Z95.0 Presence of cardiac pacemaker; Z79.899 Other long term (current) drug therapy
CPT/HCPCS: 36415; 71045; 80053; 83880; 84484; 85025; 85379; 85610; 85730; 93005; 93926; 96372; 96374; 96375; 99285; J1650; J2270; J2405